=== PATIENT | male | born 1995 | race Caucasian/White ===

== ENCOUNTER → 2019-07-03 | Outpatient (CLI) | payer BC | LOC: RAD 14:00 | DX: E80.6 Other disorders of bilirubin metabolism (principal) ==

== ENCOUNTER → 2020-01-29 | Outpatient (CLI) | payer BC | LOC: LAB 11:15 | DX: J02.9 Acute pharyngitis, unspecified (principal); R07.89 Other chest pain; R11.0 Nausea; R19.7 Diarrhea, unspecified ==